=== PATIENT | female | born 1995 | race Two or more races ===

== ENCOUNTER 2019-11-30 20:54 | Emergency (ER) | payer SELFPAY ==
[~2019-11-30] VITALS: Ht 154.9 cm; Wt 49.9 kg
[2019-11-30 20:58] VITALS: BP 122/84
[2019-11-30] MEDS ORDERED: LORAZEPAM 1 MG TABLET PO ONE (21:30)
--- NOTE | 2019-11-30 21:30 | NUR ---
BIBSELF C/O SOB X3 DAYS, PROGRESSIVELY GETTING WORSE. -COUGH O2 SAT 100% ROOM AIR
[2019-11-30] MEDS ORDERED: LORAZEPAM 1 MG TABLET ONE (21:40)
== END 2019-11-30 22:08 | disposition home or self-care (01) ==
LOC: ER 20:58
DX: F41.9 Anxiety disorder, unspecified (principal)

== ENCOUNTER 2020-01-26 14:26 | Emergency (ER) | payer MEDICAID ==
[~2020-01-26] VITALS: Ht 152.4 cm; Wt 50.8 kg
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
--- NOTE | 2020-01-26 14:47 | NUR ---
Celeste ZULETA IS EVALUATING THE PT.
--- NOTE | 2020-01-26 14:51 | NUR ---
LOGAN ZULETA IS SPEAKING TO THE PT.
--- NOTE | 2020-01-26 14:58 | NUR ---
Patient discharged to home in stable condition. Written and verbal after care instructions given. Patient verbalizes understanding of instruction AND RX. PT AMBULATED OUT WITH A STEADY GAIT. VSS.
[2020-01-26 15:00] VITALS: BP 118/71
== END 2020-01-26 15:00 | disposition home or self-care (01) ==
LOC: ER 14:29
DX: R51 Headache (principal); J06.9 Acute upper respiratory infection, unspecified